=== PATIENT | male | born 1985 | race Caucasian/White ===

== ENCOUNTER 2017-02-27 10:03 | Emergency (ER) | payer SELFPAY ==
[~2017-02-27] VITALS: Ht 182.9 cm; Wt 68.0 kg
[2017-02-27 10:05] VITALS: BP 149/71; PULSE 86; RESP 16; TEMP 97.6; O2SAT 98
[2017-02-27] MEDS ORDERED: SODIUM CHLOR 0.9% 1000 ML INJ 1,000 ML IV ONE (10:45)
[2017-02-27] MEDS ORDERED: ONDANSETRON HCL 4 MG/2 ML VIAL IV ONE (10:45)
[2017-02-27] MEDS ORDERED: LOPERAMIDE HCL 2 MG CAP PO ONE (10:45)
[2017-02-27 11:03] LABS: AUTOMATED NEUTROPHIL # 7.4 TH/MM3 (1.8-7.7); BASOPHIL % 0.2 % (0.0-2.0); HEMATOCRIT 40.4 % (39.0-51.0); HEMO FLAGS DIFF FINAL; LYMPH % 5.9 % (9.0-44.0); LYMPHOCYTE # 0.5 TH/MM3 (1.0-4.8); MEAN CELL VOLUME 87.9 FL (80.0-100.0); MEAN CORPUSCULAR HEMOGLOBIN 30.4 PG (27.0-34.0); MEAN CORPUSCULAR HGB CONC 34.6 % (32.0-36.0); MONO % 1.7 % (0.0-8.0); NEUT % 92.2 % (16.0-70.0); PLATELET COUNT 106 TH/MM3 (150-450); RED CELL DISTRIBUTION WIDTH 12.4 % (11.6-17.2)
[2017-02-27] MEDS ORDERED: LOPE2CAP PO (11:13)
[2017-02-27] MEDS ORDERED: ZOFR4TAB3 SL (11:13)
--- NOTE | 2017-02-27 11:13 | PD ---
HPI Chief Complaint: GI Complaint Time Seen by Provider: 10:26 Travel History International Travel<30 days: No Contact w/Intl Traveler<30days: No Traveled to known affect area: No History of Present Illness HPI So 31-year-old man who presents to the emergency department complaining that he doesn't feel right. He's had nausea vomiting and loose stools and diarrhea for the past day or so. He's also been feeling nauseous dizzy and weak. Had a little bit a headache as well. No definite sick contacts. History of hepatitis C and B. No history of active IV drug use. No other complaints. History Past Medical History Narrative Medical History of hepatitis B and C but denies history of cirrhosis Tetanus Vaccination: < 5 Years Social History Alcohol Use: Yes (2x per month) Tobacco Use: No Allergies-Medications (Allergen,Severity, Reaction): Coded Allergies: No Known Allergies (Unverified , 02/27/17) Reported Meds & Prescriptions Reported Meds & Active Scripts Active Loperamide (Loperamide HCl) 2 Mg Cap 2 Mg PO DIRECTED PRN One capsule after each loose stool. Not to exceed 8 capsules per day. Zofran Odt (Ondansetron Odt) 4 Mg Tab 4 Mg SL Q8HR PRN May substitute non-ODT form. Review of Systems Except as stated in HPI: all other systems reviewed are Neg Physical Exam Narrative GENERAL: Well-appearing 31-year-old man, no acute distress. SKIN: Focused skin assessment warm/dry. HEAD: Atraumatic. Normocephalic. CARDIOVASCULAR: Regular rate and rhythm. No murmur appreciated. RESPIRATORY: No accessory muscle use. Clear to auscultation. Breath sounds equal bilaterally. GASTROINTESTINAL: Abdomen soft, non-tender, nondistended. Hepatic and splenic margins not palpable. MUSCULOSKELETAL: No obvious deformities. No edema. NEUROLOGICAL: Awake and alert. No obvious cranial nerve deficits. Motor grossly within normal limits. Normal speech. PSYCHIATRIC: Appropriate mood and affect; insight and judgment normal. Data Data Last Documented VS Vital Signs Date Time Temp Pulse Resp B/P Pulse Ox O2 Delivery O2 Flow Rate FiO2 02/27/17 10:05 97.6 86 16 149/71 98 Orders Complete Blood Count With Diff (02/27/17 10:35) Comprehensive Metabolic Panel (02/27/17 10:35) Iv Access Insert/Monitor (02/27/17 10:35) Sodium Chlor 0.9% 1000 Ml Inj (Ns 1000 M (02/27/17 10:45) Ondansetron Inj (Zofran Inj) (02/27/17 10:45) Loperamide (Imodium) (02/27/17 10:45) Labs Laboratory Tests Test 02/27/17 10:55 White Blood Count 8.0 TH/MM3 Red Blood Count 4.60 MIL/MM3 Hemoglobin 14.0 GM/DL Hematocrit 40.4 % Mean Corpuscular Volume 87.9 FL Mean Corpuscular Hemoglobin 30.4 PG Mean Corpuscular Hemoglobin 34.6 % Concent Red Cell Distribution Width 12.4 % Platelet Count 106 TH/MM3 Mean Platelet Volume 9.7 FL Neutrophils (%) (Auto) 92.2 % Lymphocytes (%) (Auto) 5.9 % Monocytes (%) (Auto) 1.7 % Eosinophils (%) (Auto) 0.0 % Basophils (%) (Auto) 0.2 % Neutrophils # (Auto) 7.4 TH/MM3 Lymphocytes # (Auto) 0.5 TH/MM3 Monocytes # (Auto) 0.1 TH/MM3 Eosinophils # (Auto) 0.0 TH/MM3 Basophils # (Auto) 0.0 TH/MM3 CBC Comment DIFF FINAL Differential Comment Sodium Level 138 MEQ/L Potassium Level 3.8 MEQ/L Chloride Level 102 MEQ/L Carbon Dioxide Level 27.7 MEQ/L Anion Gap 8 MEQ/L Blood Urea Nitrogen 22 MG/DL Creatinine 0.88 MG/DL Estimat Glomerular Filtration 100 ML/MIN Rate Random Glucose 106 MG/DL Calcium Level 8.9 MG/DL Total Bilirubin 1.0 MG/DL Aspartate Amino Transf 23 U/L (AST/SGOT) Alanine Aminotransferase 30 U/L (ALT/SGPT) Alkaline Phosphatase 67 U/L Total Protein 7.8 GM/DL Albumin 4.5 GM/DL [facility] Medical Decision Making Medical Screen Exam Complete: Yes Emergency Medical Condition: Yes Interpretation(s) CBC unremarkable. CMP unremarkable. Differential Diagnosis Gastroenteritis, nausea vomiting, dehydration, colitis, appendicitis, other Narrative Course Medical decision-making new para 31 old man presents emergency Department with nausea vomiting diarrhea. No abdominal pain. No fevers. No blood in the stool. Looks otherwise well. Likely gastroenteritis with some dehydration. Recommend supportive treatment. Diagnosis Primary Impression: Gastroenteritis Additional Impression: Dehydration Additional Instructions: Drink plenty of fluids stay well-hydrated. Take Zofran if needed for nausea or vomiting. Take loperamide if needed for diarrhea. Return to the emergency department for any worsening abdominal pain, bloody diarrhea, or any other new or worsening symptoms. Med/Other Pt SpecificInfo: Prescription(s) given Scripts Loperamide 2 Mg Cap2 Mg PO DIRECTED PRN (DIARRHEA) #6 CAP Ref 0 One capsule after each loose stool. Not to exceed 8 capsules per day. Prov:Ron Reagan MD 02/27/17 Ondansetron Odt (Zofran Odt)4 Mg Tab4 Mg SL Q8HR PRN (Nausea/Vomiting) #15 TAB May substitute non-ODT form. Prov:Ron Reagan MD 02/27/17 Disposition: 01 DISCHARGE HOME Condition: Stable Ron Reagan MD Feb 27, 2017 11:13
[2017-02-27 11:31] LABS: ALKALINE PHOSPHATASE 67 U/L (45-117); ALT (GPT) 30 U/L (12-78)
[2017-02-27 11:35] LABS: ANION GAP 8 MEQ/L (5-15); AST (GOT) 23 U/L (15-37); BICARBONATE 27.7 MEQ/L (21.0-32.0); BLOOD UREA NITROGEN 22 MG/DL (7-18); CHLORIDE 102 MEQ/L (98-107); GLOMERULAR FILTRATION RATE 100 ML/MIN (>89); POTASSIUM 3.8 MEQ/L (3.5-5.1); SODIUM (NA) 138 MEQ/L (136-145)
== END 2017-02-27 13:20 | disposition home or self-care (01) ==
LOC: NEPD 10:03
DX: K52.9 Noninfective gastroenteritis and colitis, unspecified (principal); E86.0 Dehydration; R51 Headache; Z86.19 Personal history of other infectious and parasitic diseases
CPT/HCPCS: 80053; 85025; 96361; 96374; 99284; J2405; J7030

== ENCOUNTER 2017-12-03 22:47 | Emergency (ER) | payer SELFPAY ==
[~2017-12-03] VITALS: Ht 182.9 cm; Wt 68.2 kg
[~2017-12-03 22:47] MED LIST: LOPE2CAP PO; ZOFR4TAB3 SL
[2017-12-03 22:51] VITALS: BP 136/76; PULSE 70; RESP 20; TEMP 97.7; O2SAT 98
[2017-12-03] MEDS ORDERED: IBUP-232 PO (23:14)
--- NOTE | 2017-12-03 23:14 | PD ---
HPI Chief Complaint: Pain: Acute or Chronic Time Seen by Provider: 23:06 Travel History International Travel<30 days: No Contact w/Intl Traveler<30days: No Traveled to known affect area: No History of Present Illness HPI Patient is a 32 year old male who presents to the ER with complaints of pains to his right wrist. Patient reports that he injured his wrist a few days ago while at work, reports that he does a lot of repetitive work with his right hands and does heavy lifting. Reports that a few days ago, he pulled a muscle in his right wrist and thinks that he may tore a muscle as he noticed increased pain and swelling to the wrist. Patient concerned as his job is dependent on his right upper hand/wrist and he is unable to perform his job with this new injury. [facility] Past Medical History Hepatitis: Yes (B and C) ?: Not Past Surgical History Other Surgery: Yes (MRSA right hand) Social History Alcohol Use: Yes (2x per month) Tobacco Use: No Substance Use: No Allergies-Medications (Allergen,Severity, Reaction): Coded Allergies: No Known Allergies (Verified Adverse Reaction, Unknown, 12/03/17) Reported Meds & Prescriptions Reported Meds & Active Scripts Active Review of Systems General / Constitutional: No: Fever Eyes: No: Visual changes HENT: No: Headaches Cardiovascular: No: Chest Pain or Discomfort Respiratory: No: Shortness of Breath Gastrointestinal: No: Abdominal Pain Genitourinary: No: Dysuria Musculoskeletal: Positive: Limited ROM (right wrist), No: Pain Skin: No Rash Neurologic: No: Weakness Psychiatric: No: Depression Endocrine: No: Polydipsia Hematologic/Lymphatic: No: Easy Bruising Physical Exam Narrative GENERAL: Well-nourished, well-developed patient. SKIN: Focused skin assessment warm/dry. HEAD: Normocephalic. EYES: No scleral icterus. No injection or drainage. NECK: Supple, trachea midline. No JVD or lymphadenopathy. CARDIOVASCULAR: Regular rate and rhythm without murmurs, gallops, or rubs. RESPIRATORY: Breath sounds equal bilaterally. No accessory muscle use. GASTROINTESTINAL: Abdomen soft, non-tender, nondistended. MUSCULOSKELETAL: No cyanosis, or edema. RUE: patient with no obvious edema or swelling to right wrist or forearm, patient has musculoskeletal tenderness to his right forearm, no open fracture noted, normal rom to wrist, pulses intact, neurovascularly intact BACK: Nontender without obvious deformity. No CVA tenderness. Data Data Last Documented VS Vital Signs Date Time Temp Pulse Resp B/P (MAP) Pulse Ox O2 Delivery O2 Flow Rate FiO2 12/03/17 22:51 97.7 70 20 136/76 (96) 98 Orders Orders Splint Or Brace Apply/Monitor (12/03/17 23:07) Ice/Cold Pack (12/03/17 23:07) Ibuprofen (Motrin) (12/03/17 23:15) MDM Medical Decision Making Medical Screen Exam Complete: Yes Emergency Medical Condition: Yes Medical Record Reviewed: Yes Interpretation(s) Vital Signs Date Time Temp Pulse Resp B/P (MAP) Pulse Ox O2 Delivery O2 Flow Rate FiO2 12/03/17 22:51 97.7 70 20 136/76 (96) 98 Differential Diagnosis muscle strain, muscle tear Narrative Course Patient with no obvious fracture, there is no mechanism for fracture, patient with most likely muscle strain versus muscle tear, he will need a work note as he is unable to work with his injury. Understands need for MRI if symptoms do not improve. An x-ray was not ordered as he has no obvious bony deformities and symptoms are all musculoskeletal in nature. He will return to the emergency room as needed. Diagnosis Primary Impression: Muscle strain Patient Instructions: General Instructions Departure Forms: Tests/Procedures, Work Release Enter return to work date: December 17, 2017 Additional Instructions: Please ice and take NSAIDs for pain Follow-up with orthopedic surgery as needed Return to the emergency room as needed Med/Other Pt SpecificInfo: Prescription(s) given Scripts Ibuprofen (Ibuprofen) 600 Mg Tab 600 MG PO Q6H Y for Pain/Inflammation, #40 TAB 0 Refills Prov: Corrine Inman DO 12/03/17 Disposition: 01 DISCHARGE HOME Condition: Stable Corrine Inman DO December 03, 2017 23:14
[2017-12-03] MEDS ORDERED: IBUPROFEN 600 MG TAB PO ONE (23:15)
== END 2017-12-03 23:31 | disposition home or self-care (01) ==
LOC: PHED 22:47
DX: S66.911A Strain of unspecified muscle, fascia and tendon at wrist and hand level, right hand, initial encounter (principal); X50.9XXA Other and unspecified overexertion or strenuous movements or postures, initial encounter; Y99.0 Civilian activity done for income or pay; B19.10 Unspecified viral hepatitis B without hepatic coma; B19.20 Unspecified viral hepatitis C without hepatic coma
CPT/HCPCS: 99283; L3908